=== PATIENT | female | born 1960 | race Caucasian/White ===

== ENCOUNTER 2017-07-22 23:13 | Emergency (ER) | payer OTHER ==
[~2017-07-22] VITALS: Ht 170.2 cm; Wt 75.0 kg
[2017-07-22 23:15] VITALS: BP 171/79; PULSE 73; RESP 16; TEMP 98.6; O2SAT 97
[2017-07-22] MEDS ORDERED: SERO200T PO (23:30)
--- NOTE | 2017-07-22 23:35 | PD ---
HPI Chief Complaint: Injury Time Seen by Provider: 23:25 Travel History International Travel<30 days: No Contact w/Intl Traveler<30days: No Traveled to known affect area: No History of Present Illness HPI 56-year-old female here for evaluation of right ankle pain. This evening she was at a restaurant. She reports that she tripped and fell, twisting her right ankle. She now has lateral right ankle and foot pain which is throbbing, worse with movement, constant. She reports history of right ankle fusion in the past. No other complaints. [facility] Past Medical History Medical History: Denies Significant Hx Tetanus Vaccination: > 5 Years Influenza Vaccination: No ?: Not Past Surgical History Hysterectomy: Yes Social History Alcohol Use: No Tobacco Use: Yes Substance Use: No Allergies-Medications (Allergen,Severity, Reaction): Coded Allergies: No Known Allergies (Verified Allergy, Unknown, 07/22/17) Reported Meds & Prescriptions Reported Meds & Active Scripts Active Tylenol-Codeine #3 (Acetaminophen-Codeine) 300-30 mg Tab 1 Tab PO Q4H PRN Reported Seroquel (Quetiapine Fumarate) 200 Mg Tab 200 Mg PO HS Review of Systems Musculoskeletal: Positive: Limited ROM, Pain Skin: Positive Other (denies open wounds) Neurologic: No: Paresthesia Physical Exam Narrative GENERAL: Well-developed well-nourished female in no acute distress SKIN: Warm and dry. HEAD: Atraumatic. Normocephalic. EYES: Pupils equal and round. No scleral icterus. No injection or drainage. ENT: No nasal bleeding or discharge. Mucous membranes pink and moist. NECK: Trachea midline. No JVD. CARDIOVASCULAR: Regular rate and rhythm. No murmur appreciated. RESPIRATORY: No accessory muscle use. Clear to auscultation. Breath sounds equal bilaterally. MUSCULOSKELETAL: There is some soft tissue swelling around the lateral malleolus of the right ankle with associated tenderness to palpation. Previous surgical scar noted to the medial right ankle. There is limited range of motion of the right ankle. 2+ dorsalis pedis and posterior tibial pulses. Achilles tendon is intact. NEUROLOGICAL: Awake and alert. No obvious cranial nerve deficits. Motor grossly within normal limits. Normal speech. Data Data Last Documented VS Vital Signs Date Time Temp Pulse Resp B/P (MAP) Pulse Ox O2 Delivery O2 Flow Rate FiO2 07/22/17 23:26 18 100 07/22/17 23:15 98.6 73 171/79 (109) Orders Orders Ankle, Complete ([id number]) (07/22/17 ) Foot, Complete ([id number]) (07/22/17 ) Ice/Cold Pack (07/22/17 23:32) Splint Or Brace Apply/Monitor (07/23/17 00:16) Crutches (07/23/17 00:16) Ed Discharge Order (07/23/17 00:16) Acetamin-Hydrocod 325-5 Mg ([place] 5-325 (07/23/17 00:30) MDM Medical Decision Making Medical Screen Exam Complete: Yes Emergency Medical Condition: Yes Medical Record Reviewed: Yes Differential Diagnosis Lateral ankle sprain, lateral malleolus fracture, metatarsal fracture, Lisfranc injury Narrative Course X-ray imaging of the right ankle and foot will be obtained. Ice pack provided. X-ray imaging reveals: CONCLUSION: Diffuse osteopenia with fracture of the lateral malleolus and stress lines involving the calcaneus and a nondisplaced calcaneal fracture is difficult to exclude. The patient has no point tenderness to palpation to the care of the calcaneus to suggest a calcaneal fracture. She does have pain along the lateral malleolus. The patient will be discharged with splint and crutches. She is from [place] but she plans on being in town until December and therefore she will follow-up with a local orthopedist. Diagnosis Primary Impression: Fractured lateral malleolus Referrals: Royal Alvarez Jr., MD Orthopedist Additional Instructions: Crutches as needed. Nonweightbearing right leg. Follow-up with orthopedist such as Dr. Alvarez, call to make an appointment. Return for any emergent medical conditions. Med/Other Pt SpecificInfo: Prescription(s) given, Orthopedic Instructions Scripts Acetaminophen-Codeine (Tylenol-Codeine #3) 300-30 mg Tab 1 TAB PO Q4H Y for PAIN, #20 TAB 0 Refills Prov: Karen Cruz MD 07/23/17 Disposition: 01 DISCHARGE HOME Condition: Stable Jamal Hartman Jul 22, 2017 23:35
--- NOTE | 2017-07-23 00:05 | RADRPT ---
EXAM DATE/TIME: 07/22/2017 23:45 [facility] COMPARISON: No previous studies available for comparison. INDICATIONS : Right lateral ankle pain. MEDICAL HISTORY : None. SURGICAL HISTORY : None. ENCOUNTER: Initial ACUITY: 1 day PAIN SCORE: 5/10 LOCATION: Right ankle. FINDINGS: Complete fracture of the lateral malleolus without any significant angulation or displacement. There is diffuse osteopenia as well and there may be an old avulsion coming off the tip of the lateral mall eolus as well. Stress lines are present involving the calcaneus may be old, however a calcaneal fract ure is not completely excluded. CONCLUSION: Diffuse osteopenia with fracture of the lateral malleolus and stress lines involving the calcaneus an d a nondisplaced calcaneal fracture is difficult to exclude. Roro Whitlock MD on July 23, 2017 at 0:03 Board Certified Radiologist. This report was verified electronically.
--- NOTE | 2017-07-23 00:07 | RADRPT ---
EXAM DATE/TIME: 07/22/2017 23:47 [facility] COMPARISON: ANKLE RIGHT COMPLETE ([id number]), July 22, 2017, 23:45. INDICATIONS : Right lateral foot pain. MEDICAL HISTORY : None. SURGICAL HISTORY : None. ENCOUNTER: Initial ACUITY: 1 day PAIN SCORE: 5/10 LOCATION: Right foot. FINDINGS: There is diffuse osteopenia with stress lines involving the calcaneus probably chronic if the patient is asymptomatic at this site, however a subtle calcaneal fracture is difficult to exclude. CONCLUSION: Osteopenia and stress lines involving the calcaneus and a subtle nondisplaced calcaneal fracture is d ifficult to exclude. Roro Whitlock MD on July 23, 2017 at 0:04 Board Certified Radiologist. This report was verified electronically.
[2017-07-23] MEDS ORDERED: TYLETAB34 PO (00:16)
[2017-07-23] MEDS ORDERED: ACETAMINOPHEN/HYDROcodone 325 MG/5 MG TAB PO ONE (00:30)
== END 2017-07-23 00:44 | disposition home or self-care (01) ==
LOC: NEPD 23:13
DX: S82.61XA Displaced fracture of lateral malleolus of right fibula, initial encounter for closed fracture (principal); W01.0XXA Fall on same level from slipping, tripping and stumbling without subsequent striking against object, initial encounter
CPT/HCPCS: 73610; 73630; 99283

== ENCOUNTER 2017-10-05 22:32 | Emergency (ER) | payer SELFPAY ==
[~2017-10-05] VITALS: Ht 170.2 cm; Wt 80.2 kg
[~2017-10-05 22:32] MED LIST: SERO200T PO; TYLETAB34 PO
[2017-10-05 22:47] VITALS: PULSE 74; RESP 20; TEMP 98.5; O2SAT 96
--- NOTE | 2017-10-05 23:17 | PD ---
HPI Chief Complaint: Fall Time Seen by Provider: 23:14 Travel History International Travel<30 days: No Contact w/Intl Traveler<30days: No Traveled to known affect area: No History of Present Illness HPI 56-year-old female patient presents to the ER today because she states that she was carrying her great granddaughter when she slipped in the kitchen and fell onto her right elbow and right knee. She denies hitting her head or having any loss of consciousness. She denies any other injuries. Modifying Factors: None Associated Signs & Symptoms: Slip and fall, right elbow and knee injuries Risk Factors: None PFSH Past Medical History Tetanus Vaccination: > 5 Years ?: Not Past Surgical History Hysterectomy: Yes Social History Alcohol Use: No Tobacco Use: Yes Substance Use: No Allergies-Medications (Allergen,Severity, Reaction): Coded Allergies: No Known Allergies (Verified Allergy, Unknown, 10/05/17) Reported Meds & Prescriptions Reported Meds & Active Scripts Active Reported Seroquel (Quetiapine Fumarate) 200 Mg Tab 200 Mg PO HS Review of Systems Except as stated in HPI: all other systems reviewed are Neg Physical Exam Narrative GENERAL: Well-developed female patient currently in mild distress. Awake and oriented 3. SKIN: Focused skin assessment warm/dry. HEAD: Atraumatic. Normocephalic. EYES: Pupils equal and round. No scleral icterus. No injection or drainage. ENT: No nasal bleeding or discharge. Mucous membranes pink and moist. NECK: Trachea midline. No JVD. CARDIOVASCULAR: Regular rate and rhythm. No murmur appreciated. RESPIRATORY: No accessory muscle use. Clear to auscultation. Breath sounds equal bilaterally. GASTROINTESTINAL: Abdomen soft, non-tender, nondistended. Hepatic and splenic margins not palpable. MUSCULOSKELETAL: No obvious deformities. No clubbing. No cyanosis. No edema. EXTREMITIES: No clubbing, cyanosis, or edema. No joint tenderness, effusion, or edema noted. There is notable abrasions over the right elbow and right knee, mildly tender to palpation but nontender range of motion bilaterally without obvious bony deformities. NEUROLOGICAL: Awake and alert. No obvious cranial nerve deficits. Motor grossly within normal limits. Normal speech. PSYCHIATRIC: Appropriate mood and affect; insight and judgment normal. Data Data Last Documented VS Vital Signs Date Time Temp Pulse Resp B/P (MAP) Pulse Ox O2 Delivery O2 Flow Rate FiO2 10/05/17 23:38 87 16 158/94 (115) 100 Room Air 10/05/17 22:47 98.5 Orders Orders Elbow, Complete (4 Vws) (10/05/17 23:14) Knee, Complete (4vws) (10/05/17 23:14) MDM Medical Decision Making Medical Screen Exam Complete: Yes Emergency Medical Condition: Yes Medical Record Reviewed: Yes Interpretation(s) Last 24 hours Impressions Knee X-Ray 10/05/172313 Signed Impressions: Service Date/Time: Thursday, October 05, 2017 23:19 - CONCLUSION: Unremarkable examination of the right knee. Jeff Nelson Jr., MD Elbow X-Ray 10/05/172313 Signed Impressions: Service Date/Time: Thursday, October 05, 2017 23:19 - CONCLUSION: Unremarkable examination of the right elbow. Jeff Nelson Jr., MD Differential Diagnosis Contusions and abrasions versus fractures Narrative Course X-rays did not show any signs of acute fractures. It appears that she has contusions and abrasions of the knee and elbow. My plan would be to release her with follow-up to primary care physician as needed. Local wound care with local topical antibiotic cream. Return for any worsening in pain or new issues as needed. The plan has been discussed with her and she states understanding. Diagnosis Primary Impression: Elbow abrasion Additional Impression: Knee abrasion Disposition: 01 DISCHARGE HOME Condition: Stable Isauro Madden MD Oct 05, 2017 23:17
[2017-10-05 23:38] VITALS: BP 158/94; PULSE 87; RESP 16; O2SAT 100
--- NOTE | 2017-10-05 23:45 | RADRPT ---
EXAM DATE/TIME: 10/05/2017 23:19 [facility] COMPARISON: No previous studies available for comparison. INDICATIONS : Fall, right elbow pain. MEDICAL HISTORY : None. SURGICAL HISTORY : None. ENCOUNTER: Initial ACUITY: 1 day PAIN SCORE: 4/10 LOCATION: Right elbow. FINDINGS: Multiple view examination of the right elbow demonstrates no soft tissue swelling, joint effusion, or fracture. The osseous structures are in normal alignment. Bony mineralization is normal. CONCLUSION: Unremarkable examination of the right elbow. Jeff Nelson Jr., MD on October 05, 2017 at 23:41 Board Certified Radiologist. This report was verified electronically.
--- NOTE | 2017-10-05 23:46 | RADRPT ---
EXAM DATE/TIME: 10/05/2017 23:19 [facility] COMPARISON: No previous studies available for comparison. INDICATIONS : Fall, right knee pain. MEDICAL HISTORY : None. SURGICAL HISTORY : None. ENCOUNTER: Initial ACUITY: 1 day PAIN SCORE: 4/10 LOCATION: Right knee. FINDINGS: Four view examination of the right knee demonstrates no evidence of fracture or dislocation. Bony mi neralization is normal. The articular surfaces are intact. The suprapatellar soft tissues have a no rmal configuration. CONCLUSION: Unremarkable examination of the right knee. Jeff Nelson Jr., MD on October 05, 2017 at 23:44 Board Certified Radiologist. This report was verified electronically.
[2017-10-06] MEDS ORDERED: ACETAMINOPHEN 500 MG CPLT PO ONE (00:30)
== END 2017-10-06 00:43 | disposition home or self-care (01) ==
LOC: PHED 22:32
DX: S50.311A Abrasion of right elbow, initial encounter (principal); S80.211A Abrasion, right knee, initial encounter; W01.0XXA Fall on same level from slipping, tripping and stumbling without subsequent striking against object, initial encounter; Y92.009 Unspecified place in unspecified non-institutional (private) residence as the place of occurrence of the external cause; Z72.0 Tobacco use
CPT/HCPCS: 73080; 73564; 99284